=== PATIENT | female | born 1980 | race Caucasian/White ===

== ENCOUNTER 2016-08-20 08:06 | Emergency (ER) | payer SELFPAY ==
[~2016-08-20] VITALS: Ht 180.3 cm; Wt 109.5 kg
[~2016-08-20 08:06] MED LIST: ALBUTEROL S2.5 MG/.5 IN; ALBUTEROL0.083 % IN; ALBUTEROL0.5 % IN; ALBUTEROL2.5 MG/3 M IN; AMOXICILLIN500 MG OR; CEPHALEXIN500 MG OR; CIPRO500 MG OR; CORTISPORIN OTI10 ML OT; ERY-TAB333 MG OR; FLEXERIL PO; INDOCIN25 MG PO; KLONOPIN1 MG PO; LORTAB 5 OR; MEDDOSEPAK OR; MEDDOSEPAK PO; MEDROL4 M1 OR; NAPROSYN500 MG PO; NO; NO HOME MEDS; PROAIR HFA IN; PROVENTIL0.083 % IN; PROZAC40 MG PO; TRAZODONE100 MG PO; VENTOLIN HFA IN; ZITHROMAX250 MG PO; ZITHROMAX500 MG OR; ZPAK PO
[2016-08-20] MEDS ORDERED: CLINDAMYCIN300 M1 PO (08:36)
[2016-08-20] MEDS ORDERED: MOTRIN800 MG PO (08:36)
[2016-08-20 08:47] VITALS: BP 118/77
== END 2016-08-20 08:47 | disposition home or self-care (01) | DRG 153 ==
LOC: ED 08:06
DX: J02.9 Acute pharyngitis, unspecified (principal); F41.9 Anxiety disorder, unspecified; J45.909 Unspecified asthma, uncomplicated; I34.1 Nonrheumatic mitral (valve) prolapse; F17.210 Nicotine dependence, cigarettes, uncomplicated

== ENCOUNTER 2016-12-16 17:04 | Emergency (ER) | payer SELFPAY ==
[~2016-12-16] VITALS: Ht 180.3 cm; Wt 106.4 kg
[~2016-12-16 17:04] MED LIST changes: +CLINDAMYCIN300 M1 PO; +MOTRIN800 MG PO
[2016-12-16] MEDS ORDERED: ADDERALL15 MG PO (17:13)
[2016-12-16] MEDS ORDERED: KLONOPIN1 MG PO (17:13)
[2016-12-16] MEDS ORDERED: TESSALON PER100 MG PO (17:33)
[2016-12-16] MEDS ORDERED: PREDNISONE50 MG PO (17:33)
[2016-12-16] MEDS ORDERED: ZITHROMAX250 MG PO (17:33)
[2016-12-16 18:23] VITALS: BP 133/79
== END 2016-12-16 18:38 | disposition home or self-care (01) | DRG 203 ==
LOC: ED 17:04
DX: J45.909 Unspecified asthma, uncomplicated (principal); F41.9 Anxiety disorder, unspecified; I34.1 Nonrheumatic mitral (valve) prolapse; F17.210 Nicotine dependence, cigarettes, uncomplicated

== ENCOUNTER 2017-03-23 15:25 | Emergency (ER) | payer SELFPAY ==
[~2017-03-23] VITALS: Ht 180.3 cm; Wt 95.0 kg
[~2017-03-23 15:25] MED LIST changes: +ADDERALL15 MG PO; +PREDNISONE50 MG PO; +TESSALON PER100 MG PO
[2017-03-23 16:20] LABS: INFLUENZA A NONE DETECTED (NONE DETECT); INFLUENZA B NONE DETECTED (NONE DETECT)
[2017-03-23] MEDS ORDERED: VENTOLIN HFA IN (16:23)
[2017-03-23] MEDS ORDERED: ZITHROMAX250 MG PO (16:23)
[2017-03-23] MEDS ORDERED: AFRIN 12 HOUR0.05 % (16:23)
[2017-03-23] MEDS ORDERED: TESSALON PER100 MG PO (16:23)
[2017-03-23] MEDS ORDERED: PREDNISONE50 MG PO (16:23)
[2017-03-23 16:32] VITALS: BP 128/77
== END 2017-03-23 16:32 | disposition home or self-care (01) | DRG 153 ==
LOC: ED 15:25
PROVIDERS: Emergency Medicine
DX: J06.9 Acute upper respiratory infection, unspecified (principal); B34.9 Viral infection, unspecified; J40 Bronchitis, not specified as acute or chronic; F17.210 Nicotine dependence, cigarettes, uncomplicated; R50.9 Fever, unspecified; R09.81 Nasal congestion; R05 Cough; J34.89 Other specified disorders of nose and nasal sinuses

== ENCOUNTER 2017-09-09 22:36 | Emergency (ER) | payer SELFPAY ==
[~2017-09-09] VITALS: Ht 180.3 cm; Wt 99.4 kg
[~2017-09-09 22:36] MED LIST changes: +AFRIN 12 HOUR0.05 %
[2017-09-10] MEDS ORDERED: LORTAB 1010 MG PO (01:08)
[2017-09-10] MEDS ORDERED: NAPROSYN500 MG PO (01:08)
[2017-09-10 02:01] VITALS: BP 118/65
== END 2017-09-10 01:30 | disposition home or self-care (01) | DRG 554 ==
LOC: ED 22:36
DX: M17.11 Unilateral primary osteoarthritis, right knee (principal); M25.461 Effusion, right knee; J45.909 Unspecified asthma, uncomplicated; F41.9 Anxiety disorder, unspecified; F90.9 Attention-deficit hyperactivity disorder, unspecified type; F17.210 Nicotine dependence, cigarettes, uncomplicated

== ENCOUNTER 2018-12-08 13:50 | Emergency (ER) | payer MEDICAID ==
[~2018-12-08] VITALS: Ht 180.3 cm; Wt 97.7 kg
[~2018-12-08 13:50] MED LIST changes: +LORTAB 1010 MG PO
[2018-12-08] MEDS ORDERED: ULTRAM50 M1 PO (15:08)
[2018-12-08 15:21] VITALS: BP 140/75
== END 2018-12-08 15:30 | disposition home or self-care (01) ==
LOC: ED 13:50
DX: M79.631 Pain in right forearm (principal); F17.210 Nicotine dependence, cigarettes, uncomplicated

== ENCOUNTER 2019-03-30 15:12 | Observation (INO) | payer MEDICAID ==
[~2019-03-30] VITALS: Ht 180.3 cm; Wt 105.0 kg
[~2019-03-30 15:12] MED LIST changes: +ULTRAM50 M1 PO
--- NOTE | 2019-03-30 15:15 | NUR ---
PT ARRIVES PWD, AMBULATORY IN NO APPARENT DISTRESS. HR 160. EDP IMMEDIATELY TO BEDSIDE
--- NOTE | 2019-03-30 15:16 | NUR ---
ATTEMPTED VALSALVA MANUEVERS WITH PT, NO CHANGE IN HR. MD AT BEDSIDE. PT DENIES CP OR SOB, RELATES A FEELING OF PALPITATIONS X4 DAYS AND INCREASED FATIGUE AND DIZZINESS.
--- NOTE | 2019-03-30 15:20 | NUR ---
APPLIED ZOLL PADS, ALL MONITORS ASSESSED. IV INITIATED ADENOSINE 6MG GIVEN RAPID IVP WITH MD PRESENT. NO NOTED CHANGE IN RHYTHM OR RATE. 1525 ADENOSINE 12MG GIVEN RAPID IVP WITHOUT CHANGE. PT TOLERATED WELL. VSS. PT DENIES CP OR PRESSURE. UPDATED PT ON POC
[2019-03-30 15:44] LABS: IMMATURE GRANULOCYTES 0.2 % (0.0-5.0); MEAN CELL VOLUME 91.2 fL CALC (80.0-100.0); MEAN CORPUSCULAR HGB 29.7 pG CALC (26.0-32.0); MEAN CORPUSCULAR HGB CONC 32.5 g/L CALC (32.0-36.0); NEUT# 6.88 thou/uL (2.00-7.15); RED BLOOD COUNT 5.09 mill/uL (4.20-5.60); RED CELL DISTRI WIDTH 13.9 % (11.5-15.5)
[2019-03-30 15:51] LABS: HEMATOCRIT 46.4 % (37.0-47.0); HEMOGLOBIN 15.1 g/dl (12.0-16.0)
--- NOTE | 2019-03-30 16:03 | NUR ---
PT SITTING UPRIGHT WITH NO CP OR SOB, HR 132-152. SKIN PWD, NO DISTRESS.AWIAITNG LABS AND PT UPDATED ON POC
[2019-03-30 16:06] LABS: ANION GAP 14 (6-22 (CALC)); BUN 13 mg/dL (7-17); BUN/CREATININE RATIO 14 (12-20 (CALC)); CARBON DIOXIDE 22 mmol/l (22-30); CHLORIDE 103 mmol/l (95-108); CREATININE 0.9 mg/dL (0.5-1.0); GFR > 60 ML/MIN (>=60 (CALC)); GFR FOR AFR.AMER. > 60 ML/MIN (>=60 (CALC)); POTASSIUM 3.7 mmol/l (3.5-5.1); SODIUM 135 mmol/l (137-146)
--- NOTE | 2019-03-30 16:30 | NUR ---
AMIODORONE BOLUS OVER 10 MIN ORDERED. PTS HR DECREASING IN HIHG 90'S. PT TOLERATING VERY WELL. VSS. NO COMPLAINTS OF PAIN
--- NOTE | 2019-03-30 16:43 | NUR ---
INITIATED AMIODORONE GTT PER PROTOCOL. PT HR 96. VSS. NO DISTRESS. UPDATED ON PROBABLE POC. SPOUSE AT BEDSIDE. PT CALM. SKIN PWD.
--- NOTE | 2019-03-30 17:02 | NUR ---
PT RESTING MORE COMFORTABLY, HR 82, AT BEDSIDE, AMIODORONE GTT CONTINUES. PT TOLERATING WELL
--- NOTE | 2019-03-30 18:04 | NUR ---
PT RESTING WITH HOB ELEVATED. VSS. HR 82. SKIN PWD. PT CONTINUES ON AMIODORONE GTT.
--- NOTE | 2019-03-30 19:00 | NUR ---
PT CONTINUES ON AMIODORONE GTT. TOLERATING WELL. VSS. PT STATES "I FEEL SO MUCH BETTER.". DISCUSSED ADMIT AND PT AGREEABLE. FAMILY AT BEDSIDE.DENIES CP OR SOB
--- NOTE | 2019-03-30 19:15 | NUR ---
CALLED REPORT TO ICU AND PT TRANSPORTED VIA STRETCHER WITH GTT AND CONTINUOUS CARIDAC MONITO
--- NOTE | 2019-03-30 19:22 | NUR ---
38 yr old white female admitted [id number] per stretcher from er. transferred self to bed. bed weight obtained. senior boiler operator shows sinus rhythm hr 80. #20 rac amiodarone gtt infusing @ 1mg/min. history obtained per pt & er record. oriented to room. fall precautions initiated. supper meal given per request.
[2019-03-30 20:45] VITALS: BP 98/57
[2019-03-30 21:00] VITALS: BP 96/55
[2019-03-30 21:15] VITALS: BP 112/66
[2019-03-30 21:30] VITALS: BP 76/54
[2019-03-30 22:00] VITALS: BP 108/65
--- NOTE | 2019-03-30 22:00 | NUR ---
watching tv. no c/o voiced. visitor services representative shows sinus rhytm hr 84.
[2019-03-30 23:00] VITALS: BP 76/56
[2019-03-31] VITALS (14 sets, daily range): BP systolic 87–117; BP diastolic 46–71
--- NOTE | 2019-03-31 00:01 | NUR ---
eyes closed. no distress. playground monitor shows sinus rhythm hr 76
--- NOTE | 2019-03-31 02:00 | NUR ---
resting quietly. resps even & unlabored. secured entrance monitor shows sinus rhythm hr 72.
--- NOTE | 2019-03-31 04:00 | NUR ---
eyes closed. no distress.
--- NOTE | 2019-03-31 05:00 | NUR ---
lab here. blood draw.
[2019-03-31 05:29] LABS: HEMATOCRIT 41.6 % (37.0-47.0); HEMOGLOBIN 13.6 g/dl (12.0-16.0); IMMATURE GRANULOCYTES 0.2 % (0.0-5.0); MEAN CELL VOLUME 92.4 fL CALC (80.0-100.0); MEAN CORPUSCULAR HGB 30.2 pG CALC (26.0-32.0); MEAN CORPUSCULAR HGB CONC 32.7 g/L CALC (32.0-36.0); NEUT# 2.19 thou/uL (2.00-7.15); RED BLOOD COUNT 4.5 mill/uL (4.20-5.60); RED CELL DISTRI WIDTH 13.9 % (11.5-15.5)
[2019-03-31 05:56] LABS: ANION GAP 12 (6-22 (CALC)); BUN 13 mg/dL (7-17); BUN/CREATININE RATIO 17 (12-20 (CALC)); CARBON DIOXIDE 22 mmol/l (22-30); CHLORIDE 108 mmol/l (95-108); CREATININE 0.8 mg/dL (0.5-1.0); GFR > 60 ML/MIN (>=60 (CALC)); GFR FOR AFR.AMER. > 60 ML/MIN (>=60 (CALC)); POTASSIUM 4.3 mmol/l (3.5-5.1); SODIUM 137 mmol/l (137-146)
--- NOTE | 2019-03-31 06:00 | NUR ---
eyes closed. cardiac cath lab manager shows sinus rhythm hr 62.
--- NOTE | 2019-03-31 09:42 | NUR ---
KATE SAENZ, @BEDSIDE FOR CARDIO CONSULT WITH PT/MOTHER
--- NOTE | 2019-03-31 10:17 | NUR ---
PT EDUCATED ON NEW MEDICATION & GIVEN PRINT OUT ON MED WELL.
--- NOTE | 2019-03-31 10:35 | NUR ---
DANY RETURNS TO BEDSIDE TO CONTINUE ASSESSMENT.
--- NOTE | 2019-03-31 12:15 | NUR ---
SUZIE BOGGS, @BEDSIDE.
--- NOTE | 2019-03-31 14:41 | NUR ---
PT SLEEPING IN BED. NO S/S OF DISTRESS AT THIS TIME. CALLBELL W/IN REACH. WILL CONTINUE TO MONITOR.
--- NOTE | 2019-03-31 16:36 | NUR ---
FAMILY BROUGHT IN MORE FAST FOOD FOR PT. FAMILY BROUGHT IN DIET COKES & [employer] MASHED POTATO BOWLS FOR LUNCH FOR PT AND BK CHEESEBURGERS FOR DINNER. PT REMINDED OF & EDUCATED ON CARDIAC DIET.
[2019-03-31] MEDS ORDERED: TOPROL XL50 MG PO (18:06)
--- NOTE | 2019-03-31 18:50 | NUR ---
PT EDUCATED ON DC INSTRUCTIONS, INCLUIDNG NEW RX x1.
--- NOTE | 2019-03-31 19:01 | NUR ---
PT REFUSED WC, AMBULATED OUT OF ICU WITH STEADY GAIT. DAUGHTER @SIDE. WAITING DOWNSTAIRS WITH THE CAR.
== END 2019-03-31 19:01 | disposition home or self-care (01) ==
LOC: ED 15:12 → ED-I 16:35 → ED 16:35 → ICU 17:15
PROVIDERS: Family Medicine; Internal Medicine; ADMIT Internal Medicine; ATTEND Internal Medicine
DX: R00.0 Tachycardia, unspecified (principal); I34.1 Nonrheumatic mitral (valve) prolapse; F98.8 Other specified behavioral and emotional disorders with onset usually occurring in childhood and adolescence; F17.200 Nicotine dependence, unspecified, uncomplicated
CPT/HCPCS: J0282